=== PATIENT | male | born 1990 | race Caucasian/White ===

== ENCOUNTER 2019-04-21 16:31 | Emergency (ER) | payer BC ==
[2019-04-21] MEDS ORDERED: HYDROmorphone 0.5 MG/0.5 ML Syringe IM ONE (16:54)
--- NOTE | 2019-04-21 17:03 | EDM.PDOC ---
ED HPI GENERAL MEDICAL PROBLEM - General Chief Complaint: Skin Complaint Stated Complaint: ABSCESS ON BUTTOCKS Time Seen by Provider: 04/21/19 16:40 Source of Information: Reports: Patient, RN Notes Reviewed History Limitations: Reports: No Limitations - History of Present Illness INITIAL COMMENTS - FREE TEXT/NARRATIVE: Patient is a 28-year-old male who presents to the ED for the evaluation of an abscess on his left buttocks. The patient notes that this developed a few days ago, but is getting more painful in nature. He notes this to be on the left side of his anus. He had a similar abscess on the right side of the anus 2 years ago that was drained. He denies any fevers or chills at this time, just pain. He states this to be a 6 out of 10 on a regular basis, and 10 out of 10 with any sort of pressure change in his abdomen. He did take some Tylenol shortly prior to arrival to the ED but this did not help much. Anus Pain Score (Numeric/FACES): 7 - Related Data Allergies Allergy/AdvReac Type Severity Reaction Status Date / Time No Known Allergies Allergy Verified 04/21/19 16:41 Home Meds: Home Meds . [No Known Home Meds] 04/21/19 [History] Past Medical History - Past Health History Medical/Surgical History: Denies Medical/Surgical History Social & Family History - Tobacco Use Smoking Status *Q: Current Some Day Smoker Years of Tobacco use: 5 Packs/Tins Daily: 0.1 - Recreational Drug Use Recreational Drug Use: No ED ROS GENERAL - Review of Systems Review Of Systems: See Below Constitutional: Denies: Fever, Chills HEENT: Reports: No Symptoms Respiratory: Reports: No Symptoms Cardiovascular: Reports: No Symptoms Endocrine: Reports: No Symptoms GI/Abdominal: Reports: No Symptoms : Reports: No Symptoms Musculoskeletal: Reports: No Symptoms Skin: Reports: Other (abscess noted to left buttocks, near anus at 9 o'clock position.) Neurological: Reports: No Symptoms Psychiatric: Reports: No Symptoms Hematologic/Lymphatic: Reports: No Symptoms Immunologic: Reports: No Symptoms ED EXAM, SKIN/RASH Exam: See Below Exam Limited By: No Limitations General Appearance: Alert, WD/WN, No Apparent Distress, Obese (diaphoretic) Respiratory/Chest: No Respiratory Distress, Lungs Clear, Normal Breath Sounds, No Accessory Muscle Use, Chest Non-Tender Cardiovascular: Normal Peripheral Pulses, Regular Rate, Rhythm, No Murmur Peripheral Pulses: 3+: Radial (L), Radial (R) Rectal (Males) Exam: Tenderness (abscess noted to left buttocks, near anus at 9 o'clock position. This area is fluctuant and painful.) Neurological: Alert, Oriented, Normal Cognition, No Motor/Sensory Deficits Psychiatric: Normal Affect, Normal Mood Skin: Warm, Dry, Intact, Normal Color, No Rash, Other (abscess noted to left buttocks, near anus at 9 o'clock position.) Location, Skin: Perirectal Course - Vital Signs Last Recorded V/S: Last Vital Signs Temp 98.1 F 04/21/19 16:41 Pulse 105 H 04/21/19 16:41 Resp 16 04/21/19 16:41 BP 160/106 H 04/21/19 16:41 Pulse Ox 98 04/21/19 16:41 - Orders/Labs/Meds Orders: Active Orders 24 hr Category Date Time Status Notify Provider Consults [RC] ASDIRECTED Care 04/21/19 17:04 Ordered Consult to Physician [CONS] Stat Cons 04/21/19 17:03 Ordered Meds: Medications Discontinued Medications Generic Name Dose Route Start Last Admin Trade Name Freq PRN Reason Stop Dose Admin Hydromorphone HCl 1 mg 04/21/19 16:54 04/21/19 17:02 Dilaudid IM 04/21/19 16:55 1 mg ONETIME ONE Administration Lidocaine HCl 10 ml 04/21/19 17:19 04/21/19 18:00 Xylocaine 1% INJECT 04/21/19 17:20 10 ml ONETIME ONE Administration - Re-Assessments/Exams Free Text/Narrative Re-Assessment/Exam: 04/21/19 17:02 Patient is a 28-year-old male who presents to the ED for the evaluation of a perirectal abscess. I have ordered 1 mg IM Dilaudid for initial pain management , and have consulted Dr. Alen Castellon our general surgeon on-call for possible I&D of the area. 04/21/19 18:19 Alen Castellon, general surgeon was here and incised and drained the wound, he states there is no need for antibiotics time and the wound should heal appropriately. He states the abscess will likely come back again he did make this known to the patient, the patient is understanding of this. Will give general recommendations and discharge home. Departure - Departure Time of Disposition: 18:19 Disposition: Home, Self-Care 01 Condition: Fair Clinical Impression: Perirectal abscess - Discharge Information *PRESCRIPTION DRUG MONITORING PROGRAM REVIEWED*: No *COPY OF PRESCRIPTION DRUG MONITORING REPORT IN PATIENT CÉSAR: No Instructions: Perirectal Abscess Referrals: PCP,None [Primary Care Provider] - Forms: ED Department Discharge Additional Instructions: You have been evaluated in the ED today for your perirectal abscess. This was incised and drained in the ER, there is no need for oral antibiotics, this should heal appropriately by itself. Recommend taking 500 mg Tylenol or 600 mg ibuprofen every 6 hours as needed for pain relief. Do not exceed 4000 mg Tylenol or 3200 mg ibuprofen in a 24-hour time span. Applying heat packs, or taking warm baths may help alleviate the pain as well. Please return to the ED if her symptoms should change or worsen. - My Orders Last 24 Hours: My Active Orders 04/21/19 17:03 Consult to Physician [CONS] Stat 04/21/19 17:04 Notify Provider Consults [RC] ASDIRECTED - Assessment/Plan Last 24 Hours: My Active Orders 04/21/19 17:03 Consult to Physician [CONS] Stat 04/21/19 17:04 Notify Provider Consults [RC] ASDIRECTED
[2019-04-21] MEDS ORDERED: Lidocaine 1% 10 ML MDV INJECT ONE (17:19)
--- NOTE | 2019-04-21 19:07 | OR ---
DATE OF OPERATION: 04/21/2019 SURGEON: Alen Castellon MD PREOPERATIVE DIAGNOSIS: Perianal abscess. POSTOPERATIVE DIAGNOSIS: Perianal abscess. OPERATION PERFORMED: Incision and drainage of perianal abscess. FINDINGS: Large volume of purulent bloody drainage from a perianal abscess related to the left perianal space. ESTIMATED BLOOD LOSS: Minimal. COMPLICATIONS: None. ANESTHESIA: 10 mL of 1% lidocaine without epinephrine. DISPOSITION: Stable at the end the procedure. INDICATION: The patient is a 28-year-old male who presented to our ED with pain around the anus. He said it has been there since and is worsening. He has had this symptom on 1 occasion in the past. He was told to use warm compresses. He has been doing that, but the pain is worsening. He presented to our ED without fever, chills, nausea, vomiting, just simply localized pain at the anus. His physical exam demonstrated a regular heart rate and rhythm. He is nontoxic appearing. His lungs are clear to auscultation. The abdomen is soft, nontender, nondistended. Rectal exam demonstrated exquisitely tender, palpable, firm mass related to the left perianal space just distal to the anoderm consistent with a perianal abscess. He was fully informed of the major risks, benefits, and alternatives of incision and drainage. We discussed the possibility of recurrence as he has likely formed a fistula between an anal mucosal gland or cryptogland and the buttock. He expressed understanding. He opted for temporizing treatment of an incision and drainage. After lengthy discussion regarding risks, benefits, and alternatives, he gave informed consent of what was done. DESCRIPTION OF PROCEDURE: The left buttock and anus were prepped and draped in usual sterile fashion with Betadine infused to the skin and subcutaneous tissue with 1% lidocaine along the area of maximum fluctuance and erythema. A #11 blade was utilized to create an opening through the skin into the underlying collection. I got a rapid delgado of non-foul smelling purulent blood and blood clots. I evacuated the collection and passed a straight clamp into the collection to break loculations. The additional fluid was drained. I then thoroughly irrigated the inside of the incision with irrigation until there was no further purulence and no bleeding. Sterile dressing was applied. He had no complications and tolerated the procedure well. PLAN: I will see him in my office within the next week or so. He will be given my telephone number and will make an appointment on Tuesday. Instructions, I have told him to sit in a warm bath twice daily for the next week or until the symptoms resolve. JOHN /[id number]
== END 2019-04-21 18:30 | disposition home or self-care (01) ==
LOC: JD.ED 16:31
DX: K61.1 Rectal abscess (principal); F17.210 Nicotine dependence, cigarettes, uncomplicated
CPT/HCPCS: 46040; 96372; 99283; J1170; J2001